=== PATIENT | male | born 1980 | race Caucasian/White ===

== ENCOUNTER 2021-07-10 09:08 | Emergency (ER) | payer BC ==
[2021-07-10] MEDS ORDERED: XYLOCAINE 1% HCL 20 ML MDV IJ ONE (09:09)
[2021-07-10 09:20] VITALS: O2SAT 98
[2021-07-10] MEDS ORDERED: Rocephin 1000 MG INJ IM ONE (09:39)
--- NOTE | 2021-07-10 09:48 | ERPHSYRPT ---
- History of Present Illness Time Seen by Provider: 07/10/21 09:43 Source: patient Exam Limitations: no limitations Patient Subjective Stated Complaint: Pt states "I thought I had gout in both my left knee and foot, I took indomethacin and colchicine and my foot is better. My left knee my doctor at home tried to drain the knee and noting came out and now my knee is killing me." Triage Nursing Assessment: Pt presented alert and oriented X 3, skin pwd Pt ambulates with a limp. Pt left knee is red medially and swollen. Pt left knee tender to touch. Physician History: Pt states "I thought I had gout in both my left knee and foot, I took indomethacin and colchicine and my foot is better. My left knee my doctor at [facility] tried to drain the knee and noting came out and now my knee is killing me." Patient has Hx of Gout in past. Recently took colchicine and it did help his left ankle. Method of Injury: unknown Occurred: last week Quality: constant Severity of Pain-Max: moderate Severity of Pain-Current: moderate Lower Extremities Pain: knee: left Modifying Factors: Improves With: cold therapy, immobilization Associated Symptoms: none Body Map: 1 - redness and swelling Allergies/Adverse Reactions: No Known Drug Allergies Allergy (Verified 07/10/21 09:19) Hx Tetanus, Diphtheria Vaccination/Date Given: Yes Hx Influenza Vaccination/Date Given: No Hx Pneumococcal Vaccination/Date Given: No Immunizations Up to Date: Yes Travel Risk - International Travel Have you traveled outside of the country in past 3 weeks: No - Coronavirus Screening Are you exhibiting any of the following symptoms?: No Close contact with a COVID-19 positive Pt in past 14-21 Days: No - Vaccine Status Have you recieved a Covid-19 vaccination: No - Review of Systems Constitutional: No Fever, No Chills Eyes: No Symptoms Ears, Nose, & Throat: No Symptoms Respiratory: No Cough, No Dyspnea Cardiac: No Chest Pain, No Edema, No Syncope Abdominal/Gastrointestinal: No Abdominal Pain, No Nausea, No Vomiting, No Diarrhea Genitourinary Symptoms: No Dysuria Musculoskeletal: Joint Redness, Joint Pain, Joint Swelling (left knee), No Back Pain, No Neck Pain Skin: No Rash Neurological: No Dizziness, No Focal Weakness, No Sensory Changes Psychological: No Symptoms Endocrine: No Symptoms All Other Systems: Reviewed and Negative - Past Medical History Pertinent Past Medical History: No Musculoskeletal History: Other (gout) - Past Surgical History Past Surgical History: Yes Other Surgical History: appi - Social History Smoking Status: Never smoker Exposure to second hand smoke: No Drug Use: none Patient Lives Alone: No - Nursing Vital Signs Nursing Vital Signs: Initial Vital Signs Temperature 97.8 F 07/10/21 09:15 Pulse Rate 72 07/10/21 09:15 Respiratory Rate 20 07/10/21 09:15 Blood Pressure 143/95 07/10/21 09:15 O2 Sat by Pulse Oximetry 98 07/10/21 09:15 Pain Scale Pain Intensity 8 - Physical Exam General Appearance: alert Eyes, Ears, Nose, Throat Exam: moist mucous membranes Neck Exam: non-tender, supple Cardiovascular/Respiratory Exam: chest non-tender, normal breath sounds, regular rate/rhythm, no respiratory distress Gastrointestinal/Abdominal Exam: non-tender, guarding Back Exam: normal inspection, No vertebral tenderness Hips Exam: bilateral: non-tender Legs Exam: bilateral leg: non-tender Knees Exam: left knee: no evidence of injury, joint effusion, pain, soft tissue tenderness, swelling Ankle Exam: bilateral ankle: non-tender Foot Exam: bilateral foot: non-tender Neuro/Tendon Exam: normal sensation, normal motor functions Mental Status Exam: alert, oriented x 3, cooperative Skin Exam: normal color, warm, dry SpO2 Interpretation: normal SpO2: 98 O2 Delivery: Room Air - Course Nursing assessment & vital signs reviewed: Yes Ordered Tests: Medication Summary Discontinued Medications Generic Name Dose Route Start Last Admin Trade Name Freq PRN Reason Stop Dose Admin Ceftriaxone Sodium 1,000 mg 07/10/21 09:39 Rocephin 1000 Mg Inj IM 07/10/21 09:40 STAT ONE - Progress Progress: improved, pain not gone completely Counseled pt/family regarding: diagnosis, need for follow-up - Departure Departure Disposition: Home Clinical Impression: Cellulitis of left knee Condition: Stable Critical Care Time: No Instructions: Cellulitis (Skin Infection), Adult (DC) Additional Instructions: MIRNA JAMISON was seen on 07/10/21 n the Emergency Room. At that time you were treated for an emergent condition, during your visit Laboratory, Radiology and/or other procedures may have been ordered. It is very important that you follow-up with your Primary Care Physician within the next 24-48 hours to review your Emergency Room visit and the final results of testing that was ordered. Some test results such as Urine Cultures, Blood Cultures, and other cultures if ordered will not be finalized for 24-48 hours. If you do not have a Primary Care Provider please call the medical records department at [phone] ext [phone] to obtain a copy of your results or you may sign into our patient portal to obtain these results by visiting us @ [email or web address] and completing the following steps: 1. Click on the Patient Portal link 2. Click the Patient Self Enrollment Link to complete the enrollment form and entering your 3. Once the enrollment form is completed you will receive an email with a temporary ID and password at the email address you provided. 4. Next choose a user name and password. Your user name must be at least 4 characters long and your password must be at least 4 characters long. 5. Choose a security question from the list and provide your answer to the q uestion. If you already have signed into the Health Portal you may access your Health Care Information 12/06 by the following steps: 1. Login to our website @ [email or web address] 2. Enter your original user name and password. FAQS [facility] Health Portal is an online tool that contains your Lab Results, Radiology Reports, Visit History, Discharge Instructions and Health Summary Lab and Radiology Results will not be available for 72 hours on the portal. The Portal is a secure site, passwords are encryted and URLs are re-written so they cannot be copied and pasted. You and authorized family members are the only ones who can access your Portal. Also there is a timeout feature that protects your information if you leave the Portal page open. If you have technical difficulty please use the Contact Us link on the page this will allow you to submit any questions you have regarding the Portal or you may contact the Medical Record Department at [phone] ext [phone]. Discharge/Care Plan MIRNA JAMISON was seen on 07/10/21 in the Emergency Room. The patient was counseled regarding Diagnosis,Lab results, Imaging studies, need for follow up and when to return to the Emergency Room. Prescriptions given: Discharge Note I have spoken with the patient and/or caregivers. I have explained the patient's condition, diagnosis and treatment plan based on the information available to me at this time. I have answered the patient's and/or caregiver's questions and addressed any concerns. The patient and/or caregivers have as good understanding of the patient's diagnosis, condition and treatment plan as can be expected at this point. The vital signs have been stable. The patient's condition is stable and appropriate for discharge from the emergency department. The patient will pursue further outpatient evaluation with the primary care physician or other designated or consulting physician as outlined in the discharge instructions. The patient and/or caregivers are agreeable to this plan of care and follow-up instructions have been explained in detail. The patient and/or caregivers have received these instruction. The patient/and or caregivers are aware that any significant change in condition or worsening of symptoms should prompt an immediate return to this or the closest emergency department or call 911. Prescriptions: Celecoxib 100 mg [celeBREX 100 MG] 100 mg PO BID #20 cap Cephalexin Mh 500 mg [Keflex 500 mg] 500 mg PO Q6H #40 cap
[2021-07-10] MEDS ORDERED: Rocephin 1000 MG INJ ONE (10:08)
[2021-07-10 10:17] VITALS: BP 130/79; PULSE 68
== END 2021-07-10 10:29 | disposition home or self-care (01) ==
LOC: ED 09:08
DX: L03.116 Cellulitis of left lower limb (principal)
CPT/HCPCS: 96372; 99283; J0696